=== PATIENT | male | born 1990 | race African-American/Black ===

== ENCOUNTER 2018-11-11 21:57 | Emergency (ER) | payer SELFPAY ==
[~2018-11-11] VITALS: Ht 185.4 cm; Wt 122.0 kg
[2018-11-12 00:40] VITALS: BP 121/94
== END 2018-11-12 01:23 | disposition left against medical advice (07) ==
LOC: ER 21:57
DX: R10.9 Unspecified abdominal pain (principal); R11.2 Nausea with vomiting, unspecified; F12.10 Cannabis abuse, uncomplicated; F17.210 Nicotine dependence, cigarettes, uncomplicated
CPT/HCPCS: 99281; 99406

== ENCOUNTER 2018-11-12 13:44 | Emergency (ER) | payer SELFPAY ==
[~2018-11-12] VITALS: Ht 185.4 cm; Wt 122.0 kg
[2018-11-12 14:44] VITALS: BP 141/86
== END 2018-11-12 16:55 | disposition left against medical advice (07) ==
LOC: ER 15:09
DX: Z53.21 Procedure and treatment not carried out due to patient leaving prior to being seen by health care provider (principal)